=== PATIENT | male | born 1980 | race Caucasian/White ===

== ENCOUNTER → 2021-07-23 | Day surgery (SDC) | payer MEDICARE, OTHER ==
[~2021-07-23] VITALS: Ht 188 cm; Wt 93.9 kg
[~2021-07-23] MED LIST: CENTRUM ADULT120 MCG PO; CLARITIN10 M2 PO; DANTRIUM25 MG PO; DEPAKOTE SPRIN125 M2 PO; FENOFIBRATE134 MG PO; INDERAL20 MG PO; MELATONIN3 MG PO; NUEDEXTA 20-101 EACH PO; PEPCID AC20 MG PO; VITAMIN D33000 UNIT PO
[2021-07-23 09:39] LABS: HGB 15.6 g/dl (13.2-18.0); MCH 30.8 pg (25.0-31.0); MCHC 33.2 g/dL (32.0-36.0); MCV 92.9 fL (78.0-100.0); MPV 10.1 fL (6.0-9.5); RBC 5.06 M/uL (4.70-6.00); RDW 13.3 % (11.5-14.0); WBC 9.6 K/uL (4.0-10.5)
[2021-07-23 09:46] LABS: ALBUMIN 3.7 g/dL (3.4-5.0); BILIRUBIN - TOTAL 0.3 mg/dL (0.2-1.0); BUN/CREAT RATIO (CALC) 18.1 RATIO; CREATININE 1.05 mg/dL (0.67-1.17); GLOBULIN (CALCULATION) 3.9 g/dL; POTASSIUM 4.5 mmol/L (3.5-5.1); TOTAL PROTEIN 7.6 g/dL (6.4-8.2)
== END | disposition home or self-care (01) ==
LOC: FAS 08:26
PROVIDERS: Surgery
DX: K62.89 Other specified diseases of anus and rectum (principal); E78.5 Hyperlipidemia, unspecified; I10 Essential (primary) hypertension; K21.9 Gastro-esophageal reflux disease without esophagitis; F17.210 Nicotine dependence, cigarettes, uncomplicated; Z87.820 Personal history of traumatic brain injury; Z79.899 Other long term (current) drug therapy; Z88.8 Allergy status to other drugs, medicaments and biological substances
CPT/HCPCS: 36415; 80053; J1100; J2250; J2704; J7120

== ENCOUNTER → 2021-09-19 | Day surgery (SDC) | payer MEDICARE, OTHER ==
[~2021-09-19] VITALS: Ht 188 cm; Wt 93.9 kg
[~2021-09-19] MED LIST changes: +MESALAMINE1000 MG PR; +NORCO 5-325 TA1 EACH PO
[2021-09-19 08:46] LABS: HCT 45.2 % (42.0-52.0); HGB 15.3 g/dl (13.2-18.0); MCH 31.3 pg (25.0-31.0); MCHC 33.8 g/dL (32.0-36.0); MCV 92.4 fL (78.0-100.0); MPV 10.4 fL (6.0-9.5); RBC 4.89 M/uL (4.70-6.00); RDW 13.5 % (11.5-14.0); WBC 7.5 K/uL (4.0-10.5)
[2021-09-19 08:56] LABS: ALBUMIN 3.4 g/dL (3.4-5.0); BILIRUBIN - TOTAL 0.3 mg/dL (0.2-1.0); BUN/CREAT RATIO (CALC) 18.8 RATIO; CREATININE 1.01 mg/dL (0.67-1.17); GLOBULIN (CALCULATION) 3.7 g/dL; POTASSIUM 4.4 mmol/L (3.5-5.1); TOTAL PROTEIN 7.1 g/dL (6.4-8.2)
== END | disposition home or self-care (01) ==
LOC: FAS 08:05
PROVIDERS: Surgery
DX: K94.29 Other complications of gastrostomy (principal); L90.5 Scar conditions and fibrosis of skin; E78.5 Hyperlipidemia, unspecified; I10 Essential (primary) hypertension; Z87.891 Personal history of nicotine dependence; Z79.899 Other long term (current) drug therapy; Z88.8 Allergy status to other drugs, medicaments and biological substances
CPT/HCPCS: 36415; 80053; J0360; J2704; J3010; J7120